=== PATIENT | male | born 2000 | race Caucasian/White ===

== ENCOUNTER 2019-09-27 17:14 | Inpatient (IN) ==
[2019-09-27] MEDS ORDERED: SODIUM CHLORIDE 0.9% 1000ML 1,000 ML IV ONE ×2 (17:37→19:28)
--- NOTE | 2019-09-27 17:37 | Emergency Department Note ---
History of Present Illness General Chief complaint: Fever Stated complaint: FEVER, TACHYCARDIA Time Seen by Provider: 09/27/19 17:18 Source: patient Mode of arrival: EMS Limitations: no limitations History of Present Illness Provider complaint: Fever Onset (ago): hour(s) Location: back Severity: moderate Pain Consistency: + constant Associated symptoms: + fever/chills Treatments prior to arrival: none This is a 19-year-old male who was sent in from [facility] rehab facility after developing a fever today. Patient is only been on [facility] 2 days as he was transferred there following a back surgery at an outside facility. Patient states he originally injured his back after falling down a flight of steps while intoxicated. Patient states since surgery he has had paresthesias in his genital region, difficulty having bowel movements as well as difficulty urinating. He states that he was told this was due to the back surgery and local edema and that this was to be anticipated and should slowly improve with time. Patient states that the facility they have been giving him suppositories and enemas to help with bowel movements, and have been performing catheterizations to void his urine. Patient states he felt well up until earlier today when he felt a sense of chills to the point where he felt as though he was shaking. He states at that time they measured his temperature and told him he had a fever. Following this they proceeded with an enema that is been previously ordered, and following the enema sent into the emergency room. Patient was not given any Tylenol or ibuprofen prior to arrival. Patient states his back is still sore but this does not feel any worse than usual. Patient denies any other complaints of pain, cough, sore throat, trouble breathing. Patient states at the prior hospital he was tested for coronavirus and was told it was negative. Pt seen during a time of high acuity and national emergency pandemic while wearing PPE. Home Medications Home Medications Medication Instructions Recorded Confirmed Type No Known Home Medications 09/27/19 09/27/19 History Allergies Allergy/AdvReac Type Severity Reaction Status Date / Time No Known Allergies Allergy Verified 09/27/19 18:29 Past Med/Surg History Social History Preferred Language: Citizen Of The [place] Communication Ability: Effective Employment Training Specialist Required: No Beliefs That Will Affect Care: None Current Living Situation: Rehab Current Living Situation Comment: From Rehab Other Information That Helps Us Care for You: No Feels Safe at Home: Yes Safety Concerns: Feels Safe At This Time Smoking Status: Current every day smoker Tobacco Type: e-cigarettes ; Hx Alcohol Use: Yes Alcohol type: beer Hx Substance Use: No Review of Systems See HPI for pertinent positives & negatives. and A total of 10 systems reviewed and were otherwise negative Physical Exam Vital Signs Vital Signs - 24 hr 09/27/19 17:25 09/27/19 17:30 09/27/19 17:45 Temperature 39.4 C H Temperature Source Oral Pulse Rate 122 H 122 H 117 H Pulse Rate [Right Finger] Pulse Rate from SpO2 Sensor 123 H 120 H Pulse Rhythm Regular Pulse Strength Normal Respiratory Rate 14 21 15 Respiratory Effort / Characteristics Non-Labored Spontaneous Respiratory Depth Normal Respiratory Pattern Regular Blood Pressure 97/79 L 124/70 Blood Pressure [Right Arm] Blood Pressure Mean 85 79 Blood Pressure Mean [Right Arm] Pulse Oximetry 97 95 98 Oxygen Delivery Method Room Air Room Air Room Air Sepsis Recent Fever Within 48 Hours Yes Sepsis New/Unexplained Change in Mental Status No Sepsis Action Taken by Nursing Physician Notified 09/27/19 18:00 09/27/19 18:15 09/27/19 18:30 Temperature Temperature Source Pulse Rate 114 H 111 H 102 H Pulse Rate [Right Finger] Pulse Rate from SpO2 Sensor 112 H 113 H 104 H Pulse Rhythm Pulse Strength Respiratory Rate 18 20 12 Respiratory Effort / Characteristics Respiratory Depth Respiratory Pattern Blood Pressure 103/55 L Blood Pressure [Right Arm] Blood Pressure Mean 70 Blood Pressure Mean [Right Arm] Pulse Oximetry 97 96 97 Oxygen Delivery Method Room Air Sepsis Recent Fever Within 48 Hours Sepsis New/Unexplained Change in Mental Status Sepsis Action Taken by Nursing 09/27/19 18:45 09/27/19 19:23 09/27/19 19:24 Temperature 37.4 C Temperature Source Oral Pulse Rate 108 H Pulse Rate [Right Finger] 107 H Pulse Rate from SpO2 Sensor 112 H Pulse Rhythm Pulse Strength Respiratory Rate 24 12 Respiratory Effort / Characteristics Respiratory Depth Respiratory Pattern Blood Pressure Blood Pressure [Right Arm] 118/64 Blood Pressure Mean Blood Pressure Mean [Right Arm] 82 Pulse Oximetry 96 99 Oxygen Delivery Method Sepsis Recent Fever Within 48 Hours Sepsis New/Unexplained Change in Mental Status Sepsis Action Taken by Nursing GENERAL: alert, well appearing, well nourished, no distress, non-toxic EYE EXAM: normal conjunctiva, PERRL and EOM's grossly intact OROPHARYNX: no exudate, no erythema, lips, buccal mucosa, and tongue normal and mucous membranes are moist NECK: supple, no nuchal rigidity, no adenopathy, non-tender LUNGS: Clear to auscultation. Normal chest wall mechanics, no w/r/r HEART: no murmurs, S1 normal and S2 normal ABDOMEN: abdomen soft, non-tender, normo-active bowel sounds, no masses, no rebound or guarding. BACK: Back is symmetrical on inspection and there is no deformity, no midline tenderness, no CVA tenderness, dressing intact over multiple vertical incisions to the lumbar spine which appear to be healing well, no surrounding erythema, no dehiscence, no discharge or bleeding SKIN: no rashes and no bruising UPPER EXTREMITIES: upper extremities are grossly normal. FROM, nml pulses b/l. LOWER EXTREMITIES: No pitting edema. FROM, nml pulses b/l. NEURO EXAM: Normal sensorium, cranial nerves II-XII grossly intact, normal speech, no gross weakness of arms, no gross weakness of legs. Gross sensation intact. Course Course 1904: Records obtain from hospitalization from [facility]. Per the discharge summary patient was admitted due to a closed stable burst fracture of the first lumbar vertebrae. Awaiting additional labs from hospitalization. 2001: Pt updated on results. No prior hx of hepatitis or abnormal liver numbers to his knowledge. 2127: Case discussed with Dr. Posey for additional evaluation. Administered Medications Magnesium Hydroxide (Milk Of Magnesia) 30 ml PO DAILY BABATUNDE Stop: 10/28/19 11:14 Last Admin: 09/30/19 10:59 Dose: 30 ml Documented by: [id number] Admin: 09/29/19 09:05 Dose: 30 ml Documented by: [id number] Admin: 09/28/19 11:22 Dose: 30 ml Documented by: [id number] Oxycodone HCl (Roxicodone Immediate Rel) 5 - 10 mg PO Q4H PRN PRN Reason: Pain Stop: 10/11/19 23:18 Last Admin: 09/30/19 16:59 Dose: 10 mg Documented by: [id number] Admin: 09/30/19 10:59 Dose: 10 mg Documented by: [id number] Admin: 09/29/19 23:52 Dose: 10 mg Documented by: [id number] Admin: 09/29/19 12:47 Dose: 10 mg Documented by: [id number] Admin: 09/29/19 00:06 Dose: 10 mg Documented by: [id number] Admin: 09/28/19 19:07 Dose: 10 mg Documented by: [id number] Admin: 09/28/19 14:46 Dose: 10 mg Documented by: [id number] Admin: 09/28/19 08:49 Dose: 10 mg Documented by: [id number] Admin: 09/28/19 00:24 Dose: 10 mg Documented by: [id number] Polyethylene Glycol (Miralax Powder Packet) 17 gm PO DAILY PRN PRN Reason: Constipation Stop: 10/27/19 23:08 Last Admin: 09/29/19 20:00 Dose: 17 gm Documented by: [id number] Sennosides (Senokot) 17.2 mg PO QAM BABATUNDE Stop: 10/28/19 11:14 Last Admin: 09/30/19 10:59 Dose: 17.2 mg Documented by: [id number] Admin: 09/29/19 09:05 Dose: 17.2 mg Documented by: [id number] Admin: 09/28/19 11:21 Dose: 17.2 mg Documented by: [id number] Trimethoprim/Sulfamethoxazole (Septra Ds 800/160mg Tab) 1 tab PO Q12 BABATUNDE Stop: 10/10/19 20:59 Last Admin: 09/30/19 20:59 Dose: 1 tab Documented by: [id number] Discontinued Medications Sodium Chloride (Nss 1000ml) 1,000 mls @ 999 mls/hr IV .Q1H1M ONE Stop: 09/27/19 18:37 Last Infusion: 09/27/19 18:47 Dose: 0 mls/hr Documented by: [id number] Admin: 09/27/19 17:46 Dose: 999 mls/hr Documented by: [id number] Acetaminophen (Ofirmev) 1,000 mg in 100 mls @ 400 mls/hr IV NOW STA Stop: 09/27/19 18:22 Last Infusion: 09/27/19 18:37 Dose: 0 mls/hr Documented by: [id number] Admin: 09/27/19 18:22 Dose: 400 mls/hr Documented by: [id number] Vancomycin HCl 1,250 mg/ (Sodium Chloride) 525 mls @ 200 mls/hr IV NOW ONE Stop: 05/17/20 21:07 Last Infusion: 09/27/19 21:42 Dose: 0 mls/hr Documented by: [id number] Admin: 09/27/19 18:51 Dose: 200 mls/hr Documented by: [id number] Cefepime HCl (Maxipime) 2,000 mg in 20 mls @ 5 mls/min IV NOW STA Stop: 09/27/19 18:33 Last Admin: 09/27/19 18:51 Dose: 5 mls/min Documented by: [id number] Sodium Chloride (Nss 1000ml) 1,000 mls @ 999 mls/hr IV .Q1H1M ONE Stop: 09/27/19 20:28 Last Infusion: 09/27/19 20:47 Dose: 0 mls/hr Documented by: [id number] Admin: 09/27/19 19:46 Dose: 999 mls/hr Documented by: [id number] Ceftriaxone Sodium 1,000 mg/ (Dextrose) 50 mls @ 100 mls/hr IV Q24H BABATUNDE; Protocol Stop: 10/03/19 00:00 Last Infusion: 09/30/19 01:10 Dose: 0 mls/hr Documented by: [id number] Admin: 09/30/19 00:21 Dose: 100 mls/hr Documented by: [id number] Infusion: 09/29/19 00:37 Dose: 0 mls/hr Documented by: [id number] Admin: 09/29/19 00:07 Dose: 100 mls/hr Documented by: [id number] Infusion: 09/28/19 00:46 Dose: 0 mls/hr Documented by: [id number] Admin: 09/28/19 00:16 Dose: 100 mls/hr Documented by: [id number] Polyethylene Glycol/Electrolytes (Golytely) 1 dose PO Q1H BABATUNDE Stop: 09/30/19 23:59 Last Admin: 09/30/19 18:38 Dose: Not Given Documented by: [id number] Admin: 09/30/19 18:37 Dose: Not Given Documented by: [id number] Admin: 09/30/19 18:37 Dose: Not Given Documented by: [id number] Admin: 09/30/19 17:26 Dose: 1 dose Documented by: [id number] Admin: 09/30/19 16:29 Dose: 1 dose Documented by: [id number] Admin: 09/30/19 14:06 Dose: 1 dose Documented by: [id number] Critical Care Time Critical Care Time: Yes Total Critical Care Time: 42 Critical care of 42 min performed to assess and manage high likelihood of life- threatening sepsis, involving labs/imaging performed with assessment to evaluate sepsis diagnosis with frequent reassessment. This time includes bedside time, treatment discussions with patient/family/consultants, documentation time and excludes procedure time. Medical Decision Making Differential Diagnosis Differential diagnosis: Etiologies such as viral syndrome, otitis, pharyngitis, pneumonia, influenza, meningitis, urinary tract infection, sepsis, bacteremia, as well as others were entertained. Medical Records Attestation: I reviewed the patient's medical records. Home Medications Current Medication List: was personally reviewed by me Laboratory Data Attestation: I reviewed the patient's lab results. Result diagrams: 09/28/19 06:57 09/28/19 06:57 Lab Results 09/27/19 09/27/19 09/27/19 Range/Units 17:25 17:25 17:25 WBC 8.02 (4.8-10.8) K/uL RBC 4.21 L (4.7-6.1) M/uL Hgb 12.5 L (14.0-18.0) g/dL Hct 37.4 L (42-52) % MCV 88.8 (80-100) fL MCH 29.7 (25-34) pg MCHC 33.4 (32-36) g/dL RDW Std Deviation 43.6 (36.4-46.3) fL RDW Coeff of Jenni 13.4 (11.5-14.5) % Plt Count 301 (130-400) K/uL MPV 8.9 (7.4-10.4) fL Immature Gran % (Auto) 0.4 % Neut % (Auto) 95.3 % Lymph % (Auto) 2.9 % [place] % (Auto) 0.9 % Eos % (Auto) 0.4 % Baso % (Auto) 0.1 % Immature Gran # (Auto) 0.03 H (0.00-0.02) K/uL Neut # (Auto) 7.65 H (1.4-6.5) K/uL Lymph # (Auto) 0.23 L (1.2-3.4) K/uL [place] # (Auto) 0.07 L (0.11-0.59) K/uL Eos # (Auto) 0.03 (0-0.5) K/uL Baso # (Auto) 0.01 (0-0.2) K/uL PT 11.2 (9.0-12.0) Seconds INR 1.1 (0.9-1.1) APTT 26.1 (21.0-31.0) Seconds PTT Ratio 0.9 Sodium 138 (136-145) mmol/L Potassium 3.5 (3.5-5.1) mmol/L Chloride 103 (98-107) mmol/L Carbon Dioxide 29 (21-32) mmol/L Anion Gap 6.0 (3-11) BUN 19 H (7-18) mg/dl Creatinine 0.96 (0.6-1.4) mg/dl Est Cr Clr Drug Dosing 97.9 ml/min Est GFR ( Amer) 131.4 Est GFR (Non-Af Amer) 113.3 BUN/Creatinine Ratio 19.8 (10-20) Glucose 124 H (70-99) mg/dl Lactate (0.4-2.0) mmol/L Calcium 8.1 L (8.5-10.1) mg/dl Magnesium 1.9 (1.8-2.4) mg/dl Total Bilirubin 0.4 (0.2-1) mg/dl AST 238 H (15-37) U/L ALT 172 H (12-78) U/L Alkaline Phosphatase 171 H (45-117) U/L Troponin I < 0.015 (0-0.045) ng/ml Total Protein 7.1 (6.4-8.2) gm/dl Albumin 3.3 L (3.4-5.0) gm/dl Globulin 3.8 (2.5-4.0) gm/dl Albumin/Globulin Ratio 0.9 (0.9-2) Procalcitonin (0-0.5) ng/ml Urine Color Urine Appearance (Clear) Urine pH (4.5-7.5) Ur Specific [place] (1.000-1.030) Urine Protein (Negative) Urine Glucose (UA) (Negative) Urine Ketones (Negative) Urine Blood (Negative) Urine Nitrite (Negative) Urine Bilirubin (Negative) Urine Urobilinogen (Negative) Ur Leukocyte Esterase (Negative) Urine WBC (Auto) (0-5) /hpf Urine RBC (Auto) (0-4) /hpf U Hyaline Cast (Auto) (0-5) /lpf U Epithel Cells (Auto) (0-5) /lpf Urine Bacteria (Auto) (Negative) Nasal Screen MRSA (PCR) (Negative) Acetaminophen (10-30) ug/ml Hepatitis A IgM Ab (NON-REACTIVE) Hep Bs Antigen (Neg) Hep B Core IgM Ab (NON-REACTIVE) Hepatitis C Antibody (Neg) 09/27/19 09/27/19 09/27/19 Range/Units 17:25 17:25 17:25 WBC (4.8-10.8) K/uL RBC (4.7-6.1) M/uL Hgb (14.0-18.0) g/dL Hct (42-52) % MCV (80-100) fL MCH (25-34) pg MCHC (32-36) g/dL RDW Std Deviation (36.4-46.3) fL RDW Coeff of Jenni (11.5-14.5) % Plt Count (130-400) K/uL MPV (7.4-10.4) fL Immature Gran % (Auto) % Neut % (Auto) % Lymph % (Auto) % [place] % (Auto) % Eos % (Auto) % Baso % (Auto) % Immature Gran # (Auto) (0.00-0.02) K/uL Neut # (Auto) (1.4-6.5) K/uL Lymph # (Auto) (1.2-3.4) K/uL [place] # (Auto) (0.11-0.59) K/uL Eos # (Auto) (0-0.5) K/uL Baso # (Auto) (0-0.2) K/uL PT (9.0-12.0) Seconds INR (0.9-1.1) APTT (21.0-31.0) Seconds PTT Ratio Sodium (136-145) mmol/L Potassium (3.5-5.1) mmol/L Chloride (98-107) mmol/L Carbon Dioxide (21-32) mmol/L Anion Gap (3-11) BUN (7-18) mg/dl Creatinine (0.6-1.4) mg/dl Est Cr Clr Drug Dosing ml/min Est GFR ( Amer) Est GFR (Non-Af Amer) BUN/Creatinine Ratio (10-20) Glucose (70-99) mg/dl Lactate 1.2 (0.4-2.0) mmol/L Calcium (8.5-10.1) mg/dl Magnesium (1.8-2.4) mg/dl Total Bilirubin (0.2-1) mg/dl AST (15-37) U/L ALT (12-78) U/L Alkaline Phosphatase (45-117) U/L Troponin I (0-0.045) ng/ml Total Protein (6.4-8.2) gm/dl Albumin (3.4-5.0) gm/dl Globulin (2.5-4.0) gm/dl Albumin/Globulin Ratio (0.9-2) Procalcitonin 14.77 H (0-0.5) ng/ml Urine Color Urine Appearance (Clear) Urine pH (4.5-7.5) Ur Specific [place] (1.000-1.030) Urine Protein (Negative) Urine Glucose (UA) (Negative) Urine Ketones (Negative) Urine Blood (Negative) Urine Nitrite (Negative) Urine Bilirubin (Negative) Urine Urobilinogen (Negative) Ur Leukocyte Esterase (Negative) Urine WBC (Auto) (0-5) /hpf Urine RBC (Auto) (0-4) /hpf U Hyaline Cast (Auto) (0-5) /lpf U Epithel Cells (Auto) (0-5) /lpf Urine Bacteria (Auto) (Negative) Nasal Screen MRSA (PCR) (Negative) Acetaminophen < 2 L (10-30) ug/ml Hepatitis A IgM Ab (NON-REACTIVE) Hep Bs Antigen (Neg) Hep B Core IgM Ab (NON-REACTIVE) Hepatitis C Antibody (Neg) 09/27/19 09/28/19 09/28/19 Range/Units 19:45 00:20 06:57 WBC 8.91 (4.8-10.8) K/uL RBC 3.90 L (4.7-6.1) M/uL Hgb 11.8 L (14.0-18.0) g/dL Hct 35.3 L (42-52) % MCV 90.5 (80-100) fL MCH 30.3 (25-34) pg MCHC 33.4 (32-36) g/dL RDW Std Deviation 45.3 (36.4-46.3) fL RDW Coeff of Jenni 13.7 (11.5-14.5) % Plt Count 303 (130-400) K/uL MPV 8.9 (7.4-10.4) fL Immature Gran % (Auto) 0.2 % Neut % (Auto) 73.8 % Lymph % (Auto) 15.7 % [place] % (Auto) 8.2 % Eos % (Auto) 2.0 % Baso % (Auto) 0.1 % Immature Gran # (Auto) 0.02 (0.00-0.02) K/uL Neut # (Auto) 6.57 H (1.4-6.5) K/uL Lymph # (Auto) 1.40 (1.2-3.4) K/uL [place] # (Auto) 0.73 H (0.11-0.59) K/uL Eos # (Auto) 0.18 (0-0.5) K/uL Baso # (Auto) 0.01 (0-0.2) K/uL PT (9.0-12.0) Seconds INR (0.9-1.1) APTT (21.0-31.0) Seconds PTT Ratio Sodium (136-145) mmol/L Potassium (3.5-5.1) mmol/L Chloride (98-107) mmol/L Carbon Dioxide (21-32) mmol/L Anion Gap (3-11) BUN (7-18) mg/dl Creatinine (0.6-1.4) mg/dl Est Cr Clr Drug Dosing ml/min Est GFR ( Amer) Est GFR (Non-Af Amer) BUN/Creatinine Ratio (10-20) Glucose (70-99) mg/dl Lactate (0.4-2.0) mmol/L Calcium (8.5-10.1) mg/dl Magnesium (1.8-2.4) mg/dl Total Bilirubin (0.2-1) mg/dl AST (15-37) U/L ALT (12-78) U/L Alkaline Phosphatase (45-117) U/L Troponin I (0-0.045) ng/ml Total Protein (6.4-8.2) gm/dl Albumin (3.4-5.0) gm/dl Globulin (2.5-4.0) gm/dl Albumin/Globulin Ratio (0.9-2) Procalcitonin (0-0.5) ng/ml Urine Color Yellow Urine Appearance Clear (Clear) Urine pH 8.0 H (4.5-7.5) Ur Specific [place] 1.016 (1.000-1.030) Urine Protein Negative (Negative) Urine Glucose (UA) Negative (Negative) Urine Ketones Negative (Negative) Urine Blood 1+ H (Negative) Urine Nitrite Positive A (Negative) Urine Bilirubin Negative (Negative) Urine Urobilinogen Negative (Negative) Ur Leukocyte Esterase Negative (Negative) Urine WBC (Auto) 1-5 (0-5) /hpf Urine RBC (Auto) 0-4 (0-4) /hpf U Hyaline Cast (Auto) 1-5 (0-5) /lpf U Epithel Cells (Auto) 5-10 H (0-5) /lpf Urine Bacteria (Auto) 1+ H (Negative) Nasal Screen MRSA (PCR) Negative (Negative) Acetaminophen (10-30) ug/ml Hepatitis A IgM Ab (NON-REACTIVE) Hep Bs Antigen (Neg) Hep B Core IgM Ab (NON-REACTIVE) Hepatitis C Antibody (Neg) 09/28/19 09/28/19 09/28/19 Range/Units 06:57 06:57 06:57 WBC (4.8-10.8) K/uL RBC (4.7-6.1) M/uL Hgb (14.0-18.0) g/dL Hct (42-52) % MCV (80-100) fL MCH (25-34) pg MCHC (32-36) g/dL RDW Std Deviation (36.4-46.3) fL RDW Coeff of Jenni (11.5-14.5) % Plt Count (130-400) K/uL MPV (7.4-10.4) fL Immature Gran % (Auto) % Neut % (Auto) % Lymph % (Auto) % [place] % (Auto) % Eos % (Auto) % Baso % (Auto) % Immature Gran # (Auto) (0.00-0.02) K/uL Neut # (Auto) (1.4-6.5) K/uL Lymph # (Auto) (1.2-3.4) K/uL [place] # (Auto) (0.11-0.59) K/uL Eos # (Auto) (0-0.5) K/uL Baso # (Auto) (0-0.2) K/uL PT (9.0-12.0) Seconds INR (0.9-1.1) APTT (21.0-31.0) Seconds PTT Ratio Sodium 140 (136-145) mmol/L Potassium 4.0 (3.5-5.1) mmol/L Chloride 107 (98-107) mmol/L Carbon Dioxide 28 (21-32) mmol/L Anion Gap 5.0 (3-11) BUN 12 (7-18) mg/dl Creatinine 0.78 (0.6-1.4) mg/dl Est Cr Clr Drug Dosing 129.5 ml/min Est GFR ( Amer) > 150.0 Est GFR (Non-Af Amer) 129.9 BUN/Creatinine Ratio 15.5 (10-20) Glucose 91 (70-99) mg/dl Lactate (0.4-2.0) mmol/L Calcium 8.5 (8.5-10.1) mg/dl Magnesium (1.8-2.4) mg/dl Total Bilirubin 0.3 (0.2-1) mg/dl AST 80 H (15-37) U/L ALT 122 H (12-78) U/L Alkaline Phosphatase 134 H (45-117) U/L Troponin I (0-0.045) ng/ml Total Protein 6.7 (6.4-8.2) gm/dl Albumin 2.9 L (3.4-5.0) gm/dl Globulin 3.8 (2.5-4.0) gm/dl Albumin/Globulin Ratio 0.8 L (0.9-2) Procalcitonin 49.26 H (0-0.5) ng/ml Urine Color Urine Appearance (Clear) Urine pH (4.5-7.5) Ur Specific [place] (1.000-1.030) Urine Protein (Negative) Urine Glucose (UA) (Negative) Urine Ketones (Negative) Urine Blood (Negative) Urine Nitrite (Negative) Urine Bilirubin (Negative) Urine Urobilinogen (Negative) Ur Leukocyte Esterase (Negative) Urine WBC (Auto) (0-5) /hpf Urine RBC (Auto) (0-4) /hpf U Hyaline Cast (Auto) (0-5) /lpf U Epithel Cells (Auto) (0-5) /lpf Urine Bacteria (Auto) (Negative) Nasal Screen MRSA (PCR) (Negative) Acetaminophen (10-30) ug/ml Hepatitis A IgM Ab (NON-REACTIVE) Hep Bs Antigen Neg (Neg) Hep B Core IgM Ab (NON-REACTIVE) Hepatitis C Antibody Neg (Neg) 09/28/19 Range/Units 06:57 WBC (4.8-10.8) K/uL RBC (4.7-6.1) M/uL Hgb (14.0-18.0) g/dL Hct (42-52) % MCV (80-100) fL MCH (25-34) pg MCHC (32-36) g/dL RDW Std Deviation (36.4-46.3) fL RDW Coeff of Jenni (11.5-14.5) % Plt Count (130-400) K/uL MPV (7.4-10.4) fL Immature Gran % (Auto) % Neut % (Auto) % Lymph % (Auto) % [place] % (Auto) % Eos % (Auto) % Baso % (Auto) % Immature Gran # (Auto) (0.00-0.02) K/uL Neut # (Auto) (1.4-6.5) K/uL Lymph # (Auto) (1.2-3.4) K/uL [place] # (Auto) (0.11-0.59) K/uL Eos # (Auto) (0-0.5) K/uL Baso # (Auto) (0-0.2) K/uL PT (9.0-12.0) Seconds INR (0.9-1.1) APTT (21.0-31.0) Seconds PTT Ratio Sodium (136-145) mmol/L Potassium (3.5-5.1) mmol/L Chloride (98-107) mmol/L Carbon Dioxide (21-32) mmol/L Anion Gap (3-11) BUN (7-18) mg/dl Creatinine (0.6-1.4) mg/dl Est Cr Clr Drug Dosing ml/min Est GFR ( Amer) Est GFR (Non-Af Amer) BUN/Creatinine Ratio (10-20) Glucose (70-99) mg/dl Lactate (0.4-2.0) mmol/L Calcium (8.5-10.1) mg/dl Magnesium (1.8-2.4) mg/dl Total Bilirubin (0.2-1) mg/dl AST (15-37) U/L ALT (12-78) U/L Alkaline Phosphatase (45-117) U/L Troponin I (0-0.045) ng/ml Total Protein (6.4-8.2) gm/dl Albumin (3.4-5.0) gm/dl Globulin (2.5-4.0) gm/dl Albumin/Globulin Ratio (0.9-2) Procalcitonin (0-0.5) ng/ml Urine Color Urine Appearance (Clear) Urine pH (4.5-7.5) Ur Specific [place] (1.000-1.030) Urine Protein (Negative) Urine Glucose (UA) (Negative) Urine Ketones (Negative) Urine Blood (Negative) Urine Nitrite (Negative) Urine Bilirubin (Negative) Urine Urobilinogen (Negative) Ur Leukocyte Esterase (Negative) Urine WBC (Auto) (0-5) /hpf Urine RBC (Auto) (0-4) /hpf U Hyaline Cast (Auto) (0-5) /lpf U Epithel Cells (Auto) (0-5) /lpf Urine Bacteria (Auto) (Negative) Nasal Screen MRSA (PCR) (Negative) Acetaminophen (10-30) ug/ml Hepatitis A IgM Ab NON-REACTIVE (NON-REACTIVE) Hep Bs Antigen (Neg) Hep B Core IgM Ab NON-REACTIVE (NON-REACTIVE) Hepatitis C Antibody (Neg) Imaging Data Radiologist's Impression: XR chest 1V portable, XR KUB/Abdomen 1 view HISTORY: 19 years-old Male SEPSIS acute sepsis COMPARISON: None TECHNIQUE: Portable AP view of the chest with KUB radiograph FINDINGS: CHEST: Cardiomediastinal and hilar silhouettes are within normal limits. No pn eumothorax, pleural effusion, airspace consolidation or overt pulmonary edema. Bones of the chest appear grossly intact. KUB: Nonobstructive bowel gas pattern. Mild fecal retention. No pneumatosis or pneumoperitoneum. Subcentimeter sclerotic focus projecting over the right acetabulum is suggestive of a probable bone island. No urolith identified. Renal shadows are obscured by bowel gas. Posterior interbody jerrod and screw fusion hardware T12-L2. No evidence of hardware complication. IMPRESSION: 1. No acute processes of the chest. 2. Nonobstructive bowel gas pattern. 3. Mild fecal retention. ACT 112: Negative or not required by law. The above report was generated using voice recognition software. It may contain grammatical, syntax or spelling errors. Electronically signed by: Liu Rivers M.D. 09/27/2019 6:28 PM US abdomen limited HISTORY: 19 years-old Male abn lft's, fever acute fever with abnormal LFTs COMPARISON: KUB of same day TECHNIQUE: Multiple real-time sonographic images of the abdominal right upper quadrant were obtained assessing grayscale appearance and color flow FINDINGS: Visualized pancreas is unremarkable. The liver is within normal limits without focal mass or intrahepatic biliary ductal dilation. The gallbladder is mildly distended. The wall measures the upper limits of normal at 3 mm. There is a nonshadowing 6 mm echogenic focus along the nondependent gallbladder wall at the fundus. No central flow. No shadowing cholelithiasis or pericholecystic fluid. Sonographic Hodges sign reported as negative. Imaged right kidney is unremarkable without hydronephrosis. IMPRESSION: 1. Mild gallbladder distention without cholelithiasis or sonographic evidence of acute cholecystitis. 2. 6 mm echogenic focus involving the nondependent gallbladder fundus is suggestive of a polyp. Follow-up abdominal ultrasound in 6 months is recommended to further evaluate. 3. No biliary ductal dilation. ACT 112: Negative or not required by law. The above report was generated using voice recognition software. It may contain grammatical, syntax or spelling errors. Electronically signed by: Liu Rivers M.D. 09/27/2019 8:41 PM ECG Data Attestation: I personally reviewed and interpreted this ECG as follows: Indication: + tachycardia Rate (beats per minute): 122 Rhythm: + sinus tachycardia ECG Intervals/blocks: + Normal QRS and + Normal QT ECG [place]: + Normal ECG ST segments: + Normal ST segments Comparison ECG Date: no prior available Blood Pressure Blood Pressure Findings: Normal blood pressure MDM Narrative Pt presenting from rehab facility due to fever. Pt found to be tachycardic on arrival and first BP slightly low. BP did come up with IVF. HR improved with fever control and IVF. Labs and cultures drawn. CXR and KUB ordered. Urine specimen obtained. Pt has had constipation and urinary retention since his back injury and surgery. Surgical site is well appearing and pt denies worsening pain. Given frequent caths I more likely suspect UTI as the source. I do not suspect epidural abscess or hematoma, discitis or hardware infection. I do not suspect PE. Fever improved with tylenol. Pt started on vanc and cefepime. Pt received 30 ml/kg IVF. UA suggestive of infection. No evidence of SBO. Pt made aware of all results. LFt's found to be elevated. APAP level added and normal. Pt denies hx of hepatitis or abn LFT's in the past. US unremarkable. VS stable while in the ER. CAse discussed with hospitalist. An order was placed for continuous cardiac monitoring. The monitor shows a rate of 100 with sinus tachycardia rhythm. Impression & Plan Sepsis, History of back surgery, Urinary retention, UTI (urinary tract infection), Elevated liver enzymes, Constipation Discharge Plan Visit Data *Final* Discharge Date/Time: 09/27/19 22:49 Chief Complaint: Fever Stated Complaint: FEVER, TACHYCARDIA ED Provider: Milady Causey Discharge Problem: Sepsis, History of back surgery, Urinary retention, UTI (urinary tract infection), Elevated liver enzymes, Constipation Patient Disposition: Admitted As Inpatient Condition: Good Discharge Instructions Interventions: ED Discharge Assessment Last Done: 09/27/19 22:49
[2019-09-27 17:45] LABS: Basophils # (auto) 0.01 K/uL (0-0.2); Basophils % (auto) 0.1 %; Eosinophils # (auto) 0.03 K/uL (0-0.5); Eosinophils % (auto) 0.4 %; Hematocrit (blood only) 37.4 % (42-52); Hemoglobin 12.5 g/dL (14.0-18.0); Immature Granulocytes # (auto) 0.03 K/uL (0.00-0.02); Immature Granulocytes % (auto) 0.4 %; Lymphocytes # (auto) 0.23 K/uL (1.2-3.4); Lymphocytes % (auto) 2.9 %; Mean Corpuscular Hemoglobin 29.7 pg (25-34); Mean Corpuscular Hgb Conc 33.4 g/dL (32-36); Mean Corpuscular Volume 88.8 fL (80-100); Mean Platelet Volume 8.9 fL (7.4-10.4); Monocytes # (auto) 0.07 K/uL (0.11-0.59); Monocytes % (auto) 0.9 %; Neutrophils # (auto) 7.65 K/uL (1.4-6.5); Neutrophils % (auto) 95.3 %; Platelet Count 301 K/uL (130-400); RDW Coefficient of Variation 13.4 % (11.5-14.5); RDW Standard Deviation 43.6 fL (36.4-46.3); Red Blood Count 4.21 M/uL (4.7-6.1); White Blood Count 8.02 K/uL (4.8-10.8)
[2019-09-27 17:55] LABS: INR 1.1 (0.9-1.1); Partial Thromboplastin Ratio 0.9; Partial Thromboplastin Time 26.1 Seconds (21.0-31.0); Prothrombin Time 11.2 Seconds (9.0-12.0)
[2019-09-27 17:58] LABS: Alanine Aminotransferase 172 U/L (12-78); Albumin Level 3.3 gm/dl (3.4-5.0); Aspartate Aminotransferase 238 U/L (15-37); BUN Creatinine Ratio 19.8 (10-20); Blood Urea Nitrogen 19 mg/dl (7-18); Calcium 8.1 mg/dl (8.5-10.1); Carbon Dioxide 29 mmol/L (21-32); Chloride 103 mmol/L (98-107); Creatinine Clr Calc Pharmacy 97.9 ml/min; Est GFR (African American) 131.4; Est GFR (Non-African American) 113.3; Glucose 124 mg/dl (70-99); Magnesium 1.9 mg/dl (1.8-2.4); Potassium 3.5 mmol/L (3.5-5.1); Sodium 138 mmol/L (136-145)
[2019-09-27 18:03] LABS: Albumin Globulin Ratio 0.9 (0.9-2); Alkaline Phosphatase 171 U/L (45-117); Bilirubin,Total 0.4 mg/dl (0.2-1); Globulin 3.8 gm/dl (2.5-4.0); Total Protein 7.1 gm/dl (6.4-8.2); Troponin I < 0.015 ng/ml (0-0.045)
[2019-09-27] MEDS ORDERED: ACETAMINOPHEN 1,000 MG/100 ML VIAL IV STA (18:08)
--- NOTE | 2019-09-27 18:29 | XRay Report ---
XR chest 1V portable, XR KUB/Abdomen 1 view HISTORY: 19 years-old Male SEPSIS acute sepsis COMPARISON: None TECHNIQUE: Portable AP view of the chest with KUB radiograph FINDINGS: CHEST: Cardiomediastinal and hilar silhouettes are within normal limits. No pneumothorax, pleural effusion, airspace consolidation or overt pulmonary edema. Bones of the chest appear grossly intact. KUB: Nonobstructive bowel gas pattern. Mild fecal retention. No pneumatosis or pneumoperitoneum. Subcentim eter sclerotic focus projecting over the right acetabulum is suggestive of a probable bone island. No urolith identified. Renal shadows are obscured by bowel gas. Posterior interbody jerrod and screw fusio n hardware T12-L2. No evidence of hardware complication. IMPRESSION: 1. No acute processes of the chest. 2. Nonobstructive bowel gas pattern. 3. Mild fecal retention. ACT 112: Negative or not required by law. The above report was generated using voice recognition software. It may contain grammatical, syntax o r spelling errors. Electronically signed by: Liu Rivers M.D. 09/27/2019 6:28 PM
[2019-09-27] MEDS ORDERED: CEFEPIME 2,000 MG/20 ML VIAL IV STA (18:30)
[2019-09-27] MEDS ORDERED: VANCOMYCIN HCL 1,250 MG in SODIUM CHLORIDE 0.9% 500 ML IV ONE (18:30)
[2019-09-27] MEDS ORDERED: VANCOMYCIN CONSULT ACTIVE PRN (18:30)
[2019-09-27 19:55] LABS: Appearance Urine Clear (Clear); Bacteria Urine Automated 1+ (Negative); Bilirubin Urine Negative (Negative); Blood Urine 1+ (Negative); Color Urine Yellow; Glucose Urine UA Negative (Negative); Ketones Urine Negative (Negative); Leukocyte Esterase Urine Negative (Negative); Nitrite Urine Positive (Negative); Protein Urine Negative (Negative); RBC Urine Automated 0-4 /hpf (0-4); Specific Gravity Urine 1.016 (1.000-1.030); Urobilinogen Urine Negative (Negative)
--- NOTE | 2019-09-27 20:42 | Ultrasound Report ---
US abdomen limited HISTORY: 19 years-old Male abn lft's, fever acute fever with abnormal LFTs COMPARISON: KUB of same day TECHNIQUE: Multiple real-time sonographic images of the abdominal right upper quadrant were obtained assessing grayscale appearance and color flow FINDINGS: Visualized pancreas is unremarkable. The liver is within normal limits without focal mass or intrahep atic biliary ductal dilation. The gallbladder is mildly distended. The wall measures the upper limits of normal at 3 mm. There is a nonshadowing 6 mm echogenic focus along the nondependent gallbladder w all at the fundus. No central flow. No shadowing cholelithiasis or pericholecystic fluid. Sonographic Hodges sign reported as negative. Imaged right kidney is unremarkable without hydronephrosis. IMPRESSION: 1. Mild gallbladder distention without cholelithiasis or sonographic evidence of acute cholecystitis. 2. 6 mm echogenic focus involving the nondependent gallbladder fundus is suggestive of a polyp. Follo w-up abdominal ultrasound in 6 months is recommended to further evaluate. 3. No biliary ductal dilation. ACT 112: Negative or not required by law. The above report was generated using voice recognition software. It may contain grammatical, syntax o r spelling errors. Electronically signed by: Liu Rivers M.D. 09/27/2019 8:41 PM
[2019-09-27] MEDS ORDERED: ACETAMINOPHEN 325 MG TAB PO PRN (23:09)
[2019-09-27] MEDS ORDERED: ALUMINUM/MAGNESIUM SUSP 30 ML UDC PO PRN (23:09)
[2019-09-27] MEDS ORDERED: OXYCODONE HCL 10 MG/0.5 ML UDP PO PRN (23:09)
[2019-09-27] MEDS ORDERED: MAGNESIUM HYDROXIDE SUSP 30 ML UDC PO PRN (23:09)
[2019-09-27] MEDS ORDERED: POLYETHYLENE (MIRALAX) 17 GM PACK PO PRN (23:09)
[2019-09-27] MEDS ORDERED: ONDANSETRON INJ 2 MG/ML 2 ML VIAL IV PRN (23:09)
[2019-09-27] MEDS ORDERED: SOD PHOSPHATE/SOD BIPHOSPHATE ENEMA 132 ML BTL PR PRN (23:09)
[2019-09-27] MEDS ORDERED: OXYCODONE HCL IR 5 MG TAB (IMMEDIATE RELEASE) PO PRN (23:19)
[2019-09-28] MEDS: cefTRIAXone SODIUM 1,000 MG in DEXTROSE 5% 50 ML IV SCH (00:16)
[2019-09-28] MEDS: OXYCODONE HCL IR 5 MG TAB (IMMEDIATE RELEASE) PO PRN ×4 (00:24→19:07)
--- NOTE | 2019-09-28 00:52 | History & Physical Report ---
Date of Service September 28, 2019 Assessment & Plan (1) Urinary retention: Roberto Concepcion is a 19y/o w/ significant recent medical history of T12-L1 burst fracture with impingement on spinal canal s/p spinal fixation, who presented to the ED from [facility] following episode of fevers and ch ills. UTI secondary to urinary retention - following burst fracture has had urinary retention, and decreased sensation over genitals; was being bladder scanned Q4h while at [facility] and frequently requiring straight catheterization for PVRs >400mL - Urinalysis demonstrated blood, nitrites, and bacteria - with recent spinal surgery, concern for potential of seeding within orthopaedic device if infection is systemic - Procal 14.77, repeat in AM - blood cultures drawn x2 - in ED received Cefepime, continue ceftriaxone daily - will place boyd catheter at this time, as patient continues to have urge to urinate with inability to completely empty bladder - Urology consulted for recommendations on urinary retention management Elevated liver enzymes: - records from previous admission to [facility] for spinal surgery indicate that patient did not have elevated transaminases at that time - on admission, AST 238, ALT 172, Alk phos 171 - acute hepatitis panel ordered - continue to monitor hepatic function s/p T12-L1 Fusion: - Fusion on 09/19/2019, patient with no residual lower extremity muscular deficits , continued decreased sensation over genitals and rectum - narcotic regimen from OSH indicates Oxycodone 5mg Q4h (pain scale 4-6), and Oxycodone 10mg (pain scale 7-10) Diet: regular Code status: Full code DVT ppx: ambulation as tolerated (2) UTI (urinary tract infection): (3) Elevated liver enzymes: (4) History of back surgery: Admission and Anticipated Discharge Date Admission Date: September 27, 2019 History of Present Illness Primary Care Provider: NO PCP Roberto Concepcion is a 19y/o with recent significant PMH for T12-L1 burst fracture with spinal canal impingement s/p T12-L1 fusion; who presented to the ED from [facility] following having fever up to 102.7F, with chills and sweats; was admitted to [facility] two days prior following discharge from [facility], where he had the fusion surgery. Since the injury he has had continued numbness and tingling surrounding his genitals and rectum, with continued difficulties with bowel movements and urination. He was having to have suppositories placed daily in order to have bowel movements, last bowel movement was approximately 4 days ago; has difficulty with urination, he has been receiving bladder scans every 4 hours with straight cathing every 4 hours in between the straight caths he attempts to urinate on his own is able to get only small amounts of urine out at a time with intense straining. He notes that he frequently feels like his bladder is full, and this is unchanged after attempting to urinate but relieved when straight cathed. Over the last day when he has been cathed he has noticed that there is some blood also present, but was told that this was not to be worried about. Patient also reports that prior to discharge from [facility] he was tested for COVID-19 and tested negative. In the meantime he has not had nausea, vomiting, cough, shortness of breath, fatigue, changes in sense of taste, loss of sense of smell. No known or suspected exposure to COVID-19. Social history: Vapes approximately 10 hours daily, recreational alcohol use, denies illicit or recreational drugs Allergies Allergy/AdvReac Type Severity Reaction Status Date / Time No Known Allergies Allergy Verified 09/27/19 18:29 Home Medications Home Medications Medication Instructions Recorded Confirmed Type No Known Home Medications 09/27/19 09/27/19 History Past Med/Surg History Social History Preferred Language: Paraguayan Creative Services Coordinator Required: No Beliefs That Will Affect Care: None Current Living Situation: Rehab Current Living Situation Comment: From Rehab Other Information That Helps Us Care for You: No Feels Safe at Home: Yes Safety Concerns: Feels Safe At This Time Smoking Status: Current every day smoker Tobacco Type: e-cigarettes ; Hx Alcohol Use: Yes Alcohol type: beer Hx Substance Use: No Review of Systems Review of Systems: All systems reviewed & are unremarkable except as noted in HPI & below Physical Exam Constitutional: WD/WN, vitals as above Eyes: PERRL, conjunctivae normal, anicteric sclerae ENMT: external ear and nose normal, oropharynx normal Neck: normal visual inspection Respiratory: normal respiratory effort, lungs clear to auscultation Auscultation: no crackles, no rhonchi and no wheezes Cardiovascular: Rate/Rhythm: regular rate and regular rhythm Heart Sounds: normal S1 and normal S2; no gallop, no murmur and no cardiac rub Vessels: no JVD Extremities: no edema Gastrointestinal (Abdomen): Inspection/Auscultation: abdomen normal to inspection and normal bowel sounds; abdomen not distended Percussion/Palpation: + abdomen tender (suprapubic) and abdomen soft; no guarding and no hepatosplenomegaly Musculoskeletal: no cyanosis or clubbing, extremities motor strength 5/5 Skin: no rashes, warm and dry Genitourinary: no CVA tenderness Lymphatic: no cervical or axillary lymphadenopathy Results & Data Results & Data ([facility]) Vital Signs (Past 12 Hours) Vital Signs Temp Pulse Pulse Resp BP BP Pulse Ox 09/27/19 23:24 37.0 C 75 18 112/64 96 09/27/19 22:49 81 18 111/61 100 09/27/19 21:50 88 18 104/58 L 97 09/27/19 19:24 107 H 12 118/64 99 09/27/19 19:23 37.4 C 09/27/19 18:45 108 H 24 96 09/27/19 18:30 102 H 12 103/55 L 97 09/27/19 18:15 111 H 20 96 09/27/19 18:00 114 H 18 97 09/27/19 17:45 117 H 15 98 09/27/19 17:30 122 H 21 124/70 95 09/27/19 17:25 39.4 C H 122 H 14 97/79 L 97 Laboratory Results 09/27/19 09/27/19 09/27/19 Range/Units 19:45 17:25 17:25 WBC (4.8-10.8) K/uL RBC (4.7-6.1) M/uL Hgb (14.0-18.0) g/dL Hct (42-52) % MCV (80-100) fL MCH (25-34) pg MCHC (32-36) g/dL RDW Std Deviation (36.4-46.3) fL RDW Coeff of Jenni (11.5-14.5) % Plt Count (130-400) K/uL MPV (7.4-10.4) fL Immature Gran % (Auto) % Neut % (Auto) % Lymph % (Auto) % Sherman % (Auto) % Eos % (Auto) % Baso % (Auto) % Immature Gran # (Auto) (0.00-0.02) K/uL Neut # (Auto) (1.4-6.5) K/uL Lymph # (Auto) (1.2-3.4) K/uL Sherman # (Auto) (0.11-0.59) K/uL Eos # (Auto) (0-0.5) K/uL Baso # (Auto) (0-0.2) K/uL PT (9.0-12.0) Seconds INR (0.9-1.1) APTT (21.0-31.0) Seconds PTT Ratio Sodium (136-145) mmol/L Potassium (3.5-5.1) mmol/L Chloride (98-107) mmol/L Carbon Dioxide (21-32) mmol/L Anion Gap (3-11) BUN (7-18) mg/dl Creatinine (0.6-1.4) mg/dl Est Cr Clr Drug Dosing ml/min Est GFR ( Amer) Est GFR (Non-Af Amer) BUN/Creatinine Ratio (10-20) Glucose (70-99) mg/dl Lactate (0.4-2.0) mmol/L Calcium (8.5-10.1) mg/dl Magnesium (1.8-2.4) mg/dl Total Bilirubin (0.2-1) mg/dl AST (15-37) U/L ALT (12-78) U/L Alkaline Phosphatase (45-117) U/L Troponin I (0-0.045) ng/ml Total Protein (6.4-8.2) gm/dl Albumin (3.4-5.0) gm/dl Globulin (2.5-4.0) gm/dl Albumin/Globulin Ratio (0.9-2) Procalcitonin 14.77 H (0-0.5) ng/ml Urine Color Yellow Urine Appearance Clear (Clear) Urine pH 8.0 H (4.5-7.5) Ur Specific [place] 1.016 (1.000-1.030) Urine Protein Negative (Negative) Urine Glucose (UA) Negative (Negative) Urine Ketones Negative (Negative) Urine Blood 1+ H (Negative) Urine Nitrite Positive A (Negative) Urine Bilirubin Negative (Negative) Urine Urobilinogen Negative (Negative) Ur Leukocyte Esterase Negative (Negative) Urine WBC (Auto) 1-5 (0-5) /hpf Urine RBC (Auto) 0-4 (0-4) /hpf U Hyaline Cast (Auto) 1-5 (0-5) /lpf U Epithel Cells (Auto) 5-10 H (0-5) /lpf Urine Bacteria (Auto) 1+ H (Negative) Acetaminophen < 2 L (10-30) ug/ml 09/27/19 09/27/19 09/27/19 Range/Units 17:25 17:25 17:25 WBC (4.8-10.8) K/uL RBC (4.7-6.1) M/uL Hgb (14.0-18.0) g/dL Hct (42-52) % MCV (80-100) fL MCH (25-34) pg MCHC (32-36) g/dL RDW Std Deviation (36.4-46.3) fL RDW Coeff of Jenni (11.5-14.5) % Plt Count (130-400) K/uL MPV (7.4-10.4) fL Immature Gran % (Auto) % Neut % (Auto) % Lymph % (Auto) % Sherman % (Auto) % Eos % (Auto) % Baso % (Auto) % Immature Gran # (Auto) (0.00-0.02) K/uL Neut # (Auto) (1.4-6.5) K/uL Lymph # (Auto) (1.2-3.4) K/uL Sherman # (Auto) (0.11-0.59) K/uL Eos # (Auto) (0-0.5) K/uL Baso # (Auto) (0-0.2) K/uL PT 11.2 (9.0-12.0) Seconds INR 1.1 (0.9-1.1) APTT 26.1 (21.0-31.0) Seconds PTT Ratio 0.9 Sodium 138 (136-145) mmol/L Potassium 3.5 (3.5-5.1) mmol/L Chloride 103 (98-107) mmol/L Carbon Dioxide 29 (21-32) mmol/L Anion Gap 6.0 (3-11) BUN 19 H (7-18) mg/dl Creatinine 0.96 (0.6-1.4) mg/dl Est Cr Clr Drug Dosing 97.9 ml/min Est GFR ( Amer) 131.4 Est GFR (Non-Af Amer) 113.3 BUN/Creatinine Ratio 19.8 (10-20) Glucose 124 H (70-99) mg/dl Lactate 1.2 (0.4-2.0) mmol/L Calcium 8.1 L (8.5-10.1) mg/dl Magnesium 1.9 (1.8-2.4) mg/dl Total Bilirubin 0.4 (0.2-1) mg/dl AST 238 H (15-37) U/L ALT 172 H (12-78) U/L Alkaline Phosphatase 171 H (45-117) U/L Troponin I < 0.015 (0-0.045) ng/ml Total Protein 7.1 (6.4-8.2) gm/dl Albumin 3.3 L (3.4-5.0) gm/dl Globulin 3.8 (2.5-4.0) gm/dl Albumin/Globulin Ratio 0.9 (0.9-2) Procalcitonin (0-0.5) ng/ml Urine Color Urine Appearance (Clear) Urine pH (4.5-7.5) Ur Specific [place] (1.000-1.030) Urine Protein (Negative) Urine Glucose (UA) (Negative) Urine Ketones (Negative) Urine Blood (Negative) Urine Nitrite (Negative) Urine Bilirubin (Negative) Urine Urobilinogen (Negative) Ur Leukocyte Esterase (Negative) Urine WBC (Auto) (0-5) /hpf Urine RBC (Auto) (0-4) /hpf U Hyaline Cast (Auto) (0-5) /lpf U Epithel Cells (Auto) (0-5) /lpf Urine Bacteria (Auto) (Negative) Acetaminophen (10-30) ug/ml 05//20 Range/Units 17:25 WBC 8.02 (4.8-10.8) K/uL RBC 4.21 L (4.7-6.1) M/uL Hgb 12.5 L (14.0-18.0) g/dL Hct 37.4 L (42-52) % MCV 88.8 (80-100) fL MCH 29.7 (25-34) pg MCHC 33.4 (32-36) g/dL RDW Std Deviation 43.6 (36.4-46.3) fL RDW Coeff of Jenni 13.4 (11.5-14.5) % Plt Count 301 (130-400) K/uL MPV 8.9 (7.4-10.4) fL Immature Gran % (Auto) 0.4 % Neut % (Auto) 95.3 % Lymph % (Auto) 2.9 % Sherman % (Auto) 0.9 % Eos % (Auto) 0.4 % Baso % (Auto) 0.1 % Immature Gran # (Auto) 0.03 H (0.00-0.02) K/uL Neut # (Auto) 7.65 H (1.4-6.5) K/uL Lymph # (Auto) 0.23 L (1.2-3.4) K/uL Sherman # (Auto) 0.07 L (0.11-0.59) K/uL Eos # (Auto) 0.03 (0-0.5) K/uL Baso # (Auto) 0.01 (0-0.2) K/uL PT (9.0-12.0) Seconds INR (0.9-1.1) APTT (21.0-31.0) Seconds PTT Ratio Sodium (136-145) mmol/L Potassium (3.5-5.1) mmol/L Chloride (98-107) mmol/L Carbon Dioxide (21-32) mmol/L Anion Gap (3-11) BUN (7-18) mg/dl Creatinine (0.6-1.4) mg/dl Est Cr Clr Drug Dosing ml/min Est GFR ( Amer) Est GFR (Non-Af Amer) BUN/Creatinine Ratio (10-20) Glucose (70-99) mg/dl Lactate (0.4-2.0) mmol/L Calcium (8.5-10.1) mg/dl Magnesium (1.8-2.4) mg/dl Total Bilirubin (0.2-1) mg/dl AST (15-37) U/L ALT (12-78) U/L Alkaline Phosphatase (45-117) U/L Troponin I (0-0.045) ng/ml Total Protein (6.4-8.2) gm/dl Albumin (3.4-5.0) gm/dl Globulin (2.5-4.0) gm/dl Albumin/Globulin Ratio (0.9-2) Procalcitonin (0-0.5) ng/ml Urine Color Urine Appearance (Clear) Urine pH (4.5-7.5) Ur Specific [place] (1.000-1.030) Urine Protein (Negative) Urine Glucose (UA) (Negative) Urine Ketones (Negative) Urine Blood (Negative) Urine Nitrite (Negative) Urine Bilirubin (Negative) Urine Urobilinogen (Negative) Ur Leukocyte Esterase (Negative) Urine WBC (Auto) (0-5) /hpf Urine RBC (Auto) (0-4) /hpf U Hyaline Cast (Auto) (0-5) /lpf U Epithel Cells (Auto) (0-5) /lpf Urine Bacteria (Auto) (Negative) Acetaminophen (10-30) ug/ml Medications Administered Current Inpatient Medications Acetaminophen (Tylenol) 650 mg PO Q4H PRN PRN Reason: pain/fever Stop: 10/27/19 23:08 Al Hydrox/Mg Hydrox/Simethicone (Maalox) 30 ml PO Q6H PRN PRN Reason: Dyspepsia Stop: 10/27/19 23:08 Ceftriaxone Sodium 1,000 mg/ (Dextrose) 50 mls @ 100 mls/hr IV Q24H [facility]; Protocol Stop: 10/03/19 00:00 Last Admin: 09/28/19 00:16 Dose: 100 mls/hr Documented by: Magnesium Hydroxide (Milk Of Magnesia) 30 ml PO Q6H PRN PRN Reason: Constipation Stop: 10/27/19 23:08 Ondansetron HCl (Zofran) 4 mg IV Q6H PRN PRN Reason: Nausea Stop: 10/27/19 23:08 Oxycodone HCl (Roxicodone Immediate Rel) 5 - 10 mg PO Q4H PRN PRN Reason: Pain Stop: 10/11/19 23:18 Last Admin: 09/28/19 00:24 Dose: 10 mg Documented by: Polyethylene Glycol (Miralax Powder Packet) 17 gm PO DAILY PRN PRN Reason: Constipation Stop: 10/27/19 23:08 Sodium Biphosphate/Sodium Phosphate (Fleet Enema) 132 ml FL DAILY PRN PRN Reason: Constipation Stop: 10/27/19 23:08 Supervising Physician Co-Signing Physician Notes Patient seen and examined, chart reviewed, case discussed with Dr. Zarate and I agree with his assessment and plan as documented above. Briefly, patient is a 19yo male with recent fall resulting in L1 burst fracture with canal retropulsion requiring surgical repair. Some residual urinary and fecal retention and perineal numbness since surgery which is improving. Patient has been at [facility] for rehab, has been getting straight cathed q 4 hours for urinary retention. Presents today with fevers/chills On exam his is curently afebrile, HD stable, NAD Skin - surgical wound well approximated, no bleeding/drainage/dehiscence/erythema HEENT - NC/AT, PERRL, EOMI, MMM Heart - +S1/S2, regular Lungs - CTA ABD - +BS, soft, NT/ND Ext - no edema Neuro - intact Labs and images reviewed Assessment/Plan - suspect UTI from frequent straight cath, urinary retention -Place Boyd -Urology consultation -Ceftriaxone -Remainder of plan as above Resident Activity Tracking Resident Involvement: Resident Care Provided Care Provided: Adult Hospital Medicine
--- NOTE | 2019-09-28 06:58 | Billing Data ---
Date of Service September 27, 2019 Coding Level of Care Code 11096 OBS Care - Level 2
[2019-09-28 07:22] LABS: Basophils # (auto) 0.01 K/uL (0-0.2); Basophils % (auto) 0.1 %; Eosinophils # (auto) 0.18 K/uL (0-0.5); Hematocrit (blood only) 35.3 % (42-52); Hemoglobin 11.8 g/dL (14.0-18.0); Immature Granulocytes # (auto) 0.02 K/uL (0.00-0.02); Immature Granulocytes % (auto) 0.2 %; Lymphocytes % (auto) 15.7 %; Mean Corpuscular Hemoglobin 30.3 pg (25-34); Mean Corpuscular Hgb Conc 33.4 g/dL (32-36); Mean Corpuscular Volume 90.5 fL (80-100); Mean Platelet Volume 8.9 fL (7.4-10.4); Monocytes # (auto) 0.73 K/uL (0.11-0.59); Monocytes % (auto) 8.2 %; Neutrophils # (auto) 6.57 K/uL (1.4-6.5); Neutrophils % (auto) 73.8 %; Platelet Count 303 K/uL (130-400); RDW Coefficient of Variation 13.7 % (11.5-14.5); RDW Standard Deviation 45.3 fL (36.4-46.3); White Blood Count 8.91 K/uL (4.8-10.8)
[2019-09-28 08:09] LABS: Alanine Aminotransferase 122 U/L (12-78); Albumin Globulin Ratio 0.8 (0.9-2); Albumin Level 2.9 gm/dl (3.4-5.0); Alkaline Phosphatase 134 U/L (45-117); Aspartate Aminotransferase 80 U/L (15-37); BUN Creatinine Ratio 15.5 (10-20); Bilirubin,Total 0.3 mg/dl (0.2-1); Blood Urea Nitrogen 12 mg/dl (7-18); Calcium 8.5 mg/dl (8.5-10.1); Carbon Dioxide 28 mmol/L (21-32); Chloride 107 mmol/L (98-107); Creatinine Clr Calc Pharmacy 129.5 ml/min; Est GFR (African American) > 150.0; Est GFR (Non-African American) 129.9; Globulin 3.8 gm/dl (2.5-4.0); Glucose 91 mg/dl (70-99); Sodium 140 mmol/L (136-145); Total Protein 6.7 gm/dl (6.4-8.2)
[2019-09-28 08:17] LABS: Hepatitis B Surface Antigen Neg (Neg)
--- NOTE | 2019-09-28 08:32 | Urology Consultation ---
Date of Consultation September 28, 2019 Assessment & Plan (1) Urinary retention: Likely multifactorial largely revolve around back surgery and recovery and deconditioning secondary from this procedure. Patient's bowels have not returned to normal, patient is poorly mobile due to acute illness as well as recovery. Patient likely dealing with multiple effects that would lead to trouble with emptying. Patient is tolerating catheter at this time. Patient's records were reviewed pertinent information as listed above. Patient's complicated medical and surgical history was reviewed and summarized above. At this point agree with supportive care. Would maintain catheter for a short period of time until patient has more normal return of bowel function and is better conditioned and more mobile. Patient may be able to transition to intermittent catheters. According to records this appears to be what the patient had been doing prior to admission. Patient is seen in [place] after his spinal surgery. Will likely need to continue with follow-up with them. We will continue to monitor and will be able to set up follow-up as needed if patient has not been established with a urologist in the [place] area. Agree with continued monitoring as well as supportive care. Patient is undergoi ng work-up for other issues. Would recommend bowel regimen, physical therapy to increase mobility, and hydration. Would also recommend avoiding any medications that may worsen urinary issues. May need to try to decrease any narcotic use for pain control as this can contribute. If needed, would have follow-up in approximately 4 to 6 weeks. (2) History of back surgery: (3) Constipation: History of Present Illness Attending Physician: Karyn Ma DO History of Present Illness Consult for urinary issues with incomplete emptying and possible retention. Patient had a recent back surgery and since then has been dealing with constipation related issues as well as trouble voiding. Patient apparently was doing intermittent catheter and per records. On assessment patient was recently sleeping and when awaken only answer minimal questions. Denied major complaints or issues. Review of records did find patient has mild to moderate discomfort in pelvis and groin going to back and side in waves. Is dealing with acute illness likely secondary to constipation as well as abdominal pain and other issues. Is being further worked up for issues such as elevated liver enzymes. Patient is still recovering from surgery, and has been deconditioned from this. Has decreased mobility significantly with acute issues. He was aware that after the surgery he may have some issues with constipation, slow return of normal bowel function, urinary related issues, and other problems likely secondary from surgery on the spine as well as recovery from the surgery itself. Patient has not had complete return to normal bowel function. Has not had urinary issues in the past. Denies bleeding. No severe nausea or vomiting. Currently no fevers. Is tolerating catheter. Discussed with patient multifactorial nature of urinary issues, retention, and incomplete bladder emptying. Discussed concerns and issues. Discussed decreased mobility and trouble voiding. Discussed issues related to deconditioning and weakened state. Discussed possibility that patient had more moderate to severe issues and with the acute illness and deconditioning these issues became more prevalent and obvious. Discussed bowel function and possible issues related to decrease in function and its relation to other pelvic organs and systems. Discussed different medications, will use during hospitalization and their effect on ability to empty. 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 Patient is well nourished and well kept. HEENT: Normocephalic Atraumatic. Inspection normal. Cranial Nerves 2-12 Grossly intact. Nares are clear. Neck is supple. Normal inspection of face. Normal inspection of neck. Neurologic: No deficits on inspection. Baseline for motor function and sensory. Psychologic: Somnolent Respiratory: Nonlabored. No use of accessory muscles. No tachypnea or dyspnea. Cardiovascular: No tachycardia Skin: [place] and Dry. No rashes or visible lesions. Extremities: Moving without issues. No motor deficits on inspection Lymphatics: No edema Abdomen: Soft Non-distended. No acites. No rebound or guarding. Results & Data Vital Signs (Past 12 Hours) Vital Signs Temp Pulse Pulse Resp BP BP Pulse Ox 09/28/19 07:52 37.1 C 73 18 108/63 99 09/27/19 23:24 37.0 C 75 18 112/64 96 09/27/19 22:49 81 18 111/61 100 09/27/19 21:50 88 18 104/58 L 97 PG Care Time/CCT Total # of Minutes Spent Total Time Spent with Patient: Total time spent is greater than 50% in coordinat ion of care (as documented) at patient's floor/unit and/or counseling patient: Coding Level of Care Code 41396 Inpt Consult Level 5 Diagnoses Urinary retention R33.9 History of back surgery Z98.890 Constipation K59.00
[2019-09-28 08:45] LABS: Hepatitis C IgG 13Yrs+Old_Rflx Neg (Neg)
--- NOTE | 2019-09-28 08:47 | Ultrasound Report ---
US renal/blad retro comp CLINICAL HISTORY: 19 years-old Male presenting with urinary retention. TECHNIQUE: Real-time grayscale and limited color Doppler ultrasound imaging of the kidneys and bladde r was performed. COMPARISON: Ultrasound from 09/27/2019. FINDINGS: Right kidney: Normal echogenicity with preserved corticomedullary differentiation. Normal cortical th ickness. Right kidney measures 10.7 cm. No hydronephrosis. No convincing evidence of calculus or mass . Left kidney: Normal echogenicity with preserved corticomedullary differentiation. Normal cortical thi ckness. Left kidney measures 10.2 cm. No hydronephrosis. No convincing evidence of calculus or mass. Bladder: Decompressed with a Dave catheter limiting evaluation. Bilateral ureteral jets not visualiz ed. Other: None. IMPRESSION: 1. Normal renal ultrasound. No obstruction. 2. Limited evaluation of the urinary bladder due to the presence of a Dave catheter. ACT 112: Negative or not required by law. Electronically signed by: Pino Soni M.D. 09/28/2019 8:45 AM
[2019-09-28] MEDS: SENNA 8.6 MG TAB PO SCH (11:21)
[2019-09-28] MEDS: MAGNESIUM HYDROXIDE SUSP 30 ML UDC PO SCH (11:22)
--- NOTE | 2019-09-28 16:50 | Electrocardiogram Report ---
Test Reason : Blood Pressure : / mmHG Vent. Rate : 122 BPM Atrial Rate : 122 BPM P-R Int : 152 ms QRS Dur : 076 ms QT Int : 298 ms P-R-T Axes : 060 075 041 degrees QTc Int : 424 ms Sinus tachycardia Otherwise normal ECG No previous ECGs available Confirmed by Patricio Sandy ([id number]) on 09/28/2019 4:50:46 PM Referred By: REFERRED SELF Confirmed By:Jarvis Sandy
--- NOTE | 2019-09-28 19:38 | Hospitalist Progress Note ---
Date of Service September 28, 2019 Assessment & Plan (1) Urinary retention: Roberto Concepcion is a 19y/o w/ significant recent medical history of T12-L1 burst fracture with impingement on spinal canal s/p spinal fixation, who presented to the ED from [facility] following episode of fevers and ch ills. UTI secondary to urinary retention - following burst fracture has had urinary retention, and decreased sensation over genitals; was being bladder scanned Q4h while at [facility] and frequently requiring straight catheterization for PVRs >400mL - Urinalysis demonstrated blood, nitrites, and bacteria - with recent spinal surgery, concern for potential of seeding within orthopaedic device if infection is systemic - Procal 14.77, repeat in AM - blood cultures drawn x2 - in ED received Cefepime, continue ceftriaxone daily - will place boyd catheter at this time, as patient continues to have urge to urinate with inability to completely empty bladder - Urology plans to monitor with boyd, bowel regimen, decreased opioid use Elevated liver enzymes: - records from previous admission to [facility] for spinal surgery indicate that patient did not have elevated transaminases at that time - on admission, AST 238, ALT 172, Alk phos 171 - acute hepatitis panel ordered - continue to monitor hepatic function s/p T12-L1 Fusion: - Fusion on 09/19/2019, patient with no residual lower extremity muscular defic its, continued decreased sensation over genitals and rectum - narcotic regimen from OSH indicates Oxycodone 5mg Q4h (pain scale 4-6), and Oxycodone 10mg (pain scale 7-10) Diet: regular Code status: Full code DVT ppx: ambulation as tolerated (2) UTI (urinary tract infection): (3) Elevated liver enzymes: (4) History of back surgery: (5) Constipation: MOM, senna Hopefully this will improve urinary retention Opioid use noted Admission and Anticipated Discharge Date Admission Date: September 27, 2019 Subjective Pt's main concern is his IV site. He states it is hurting him and "bleeding now" and if we don't take it out "I'll take it out myself". States his last bowel movement was around the time of his surgery on 09/17. He is passing gas today though. Pt denies fever, SOB, chest pain, abd pain, n/v. States his back pain "sucks". Review of Systems Review of Systems: Pertinent positives and negatives reviewed in HPI--all others negative Physical Exam Constitutional: WD/WN, vitals as above resting comfortably when I entered the room, interacts minimally and appears annoyed at my questions Eyes: normal visual crawely by confrontation and + anicteric sclerae Neck: normal visual inspection and trachea midline Respiratory: normal respiratory effort, lungs clear to auscultation Cardiovascular: Rate/Rhythm: regular rate and regular rhythm Gastrointestinal (Abdomen): Inspection/Auscultation: abdomen not distended Percussion/Palpation: abdomen soft; abdomen nontender Musculoskeletal: Head/Neck/Chest: normocephalic and head atraumatic negative for edema, peripheral pulses intact Skin: no rashes, warm and dry Neurologic: awake; not confused Speech / Cognition: normal speech Psychiatric: Orientation: oriented x 3 Affect: + irritable affect Results & Data Results & Data ([facility]) Vital Signs (Past 12 Hours) Vital Signs Temp Pulse Resp BP Pulse Ox 09/28/19 15:04 36.9 C 70 16 106/63 100 09/28/19 07:52 37.1 C 73 18 108/63 99 PG Care Time/CCT Total # of Minutes Spent Total Time Spent with Patient: Total time spent is greater than 50% in coordination of care (as documented) at patient's floor/unit and/or counseling patient: Coding Level of Care Code 59056 Subseq Hosp Care Lvl 3 Diagnoses Urinary retention R33.9 UTI (urinary tract infection) N39.0 Elevated liver enzymes R74.8 History of back surgery Z98.890 Constipation K59.00
[2019-09-29] MEDS: OXYCODONE HCL IR 5 MG TAB (IMMEDIATE RELEASE) PO PRN ×3 (00:06→23:52)
[2019-09-29] MEDS: cefTRIAXone SODIUM 1,000 MG in DEXTROSE 5% 50 ML IV SCH (00:07)
[2019-09-29] MEDS: SENNA 8.6 MG TAB PO SCH (09:05)
[2019-09-29] MEDS: MAGNESIUM HYDROXIDE SUSP 30 ML UDC PO SCH (09:05)
[2019-09-29 13:14] LABS: Hepatitis A Antibody IgM NON-REACTIVE (NON-REACTIVE); Hepatitis B Core Antibody IgM NON-REACTIVE (NON-REACTIVE)
--- NOTE | 2019-09-29 17:44 | Hospitalist Progress Note ---
Date of Service September 29, 2019 Assessment & Plan (1) Urinary retention: Roberto Concepcion is a 19y/o w/ significant recent medical history of T12-L1 burst fracture with impingement on spinal canal s/p spinal fixation, who presented to the ED from [facility] following episode of fevers and ch ills. UTI secondary to urinary retention - following burst fracture has had urinary retention, and decreased sensation over genitals; was being bladder scanned Q4h while at [facility] and frequently requiring straight catheterization for PVRs >400mL - Urinalysis demonstrated blood, nitrites, and bacteria - with recent spinal surgery, concern for potential of seeding within orthopaedic device if infection is systemic - Procal 14.77, repeat in AM - blood cultures drawn x2 - in ED received Cefepime, continue ceftriaxone daily - will place boyd catheter at this time, as patient continues to have urge to urinate with inability to completely empty bladder - Urology plans to monitor with boyd, bowel regimen, decreased opioid use Urine cx with 80K coag neg staph Elevated liver enzymes: - records from previous admission to [facility] for spinal surgery indicate that patient did not have elevated transaminases at that time - on admission, AST 238, ALT 172, Alk phos 171 - acute hepatitis panel ordered - continue to monitor hepatic function s/p T12-L1 Fusion: - Fusion on 09/19/2019, patient with no residual lower extremity muscular deficits, continued decreased sensation over genitals and rectum - narcotic regimen from OSH indicates Oxycodone 5mg Q4h (pain scale 4-6), and Oxycodone 10mg (pain scale 7-10) Diet: regular Code status: Full code DVT ppx: ambulation as tolerated (2) UTI (urinary tract infection): (3) Elevated liver enzymes: (4) History of back surgery: (5) Constipation: MOM, senna Hopefully this will improve urinary retention Opioid use noted, may need t/c relistor given opioid use Admission and Anticipated Discharge Date Admission Date: September 28, 2019 Subjective Pt is overall more comfortable. His back pain is less today. IV is not irritating. Still no bowel movement, but he is passing gas still. Pt denies fever, SOB, chest pain, abd pain, n/v. Review of Systems Review of Systems: Pertinent positives and negatives reviewed in HPI--all others negative Physical Exam Constitutional: WD/WN, vitals as above Eyes: normal visual crawley by confrontation and + anicteric sclerae Neck: normal visual inspection and trachea midline Respiratory: normal respiratory effort, lungs clear to auscultation Cardiovascular: Rate/Rhythm: regular rate and regular rhythm Extremities: no edema Gastrointestinal (Abdomen): Inspection/Auscultation: abdomen not distended Percussion/Palpation: abdomen soft; abdomen nontender Musculoskeletal: Head/Neck/Chest: normocephalic and head atraumatic Skin: no rashes, warm and dry Neurologic: awake; not confused Speech / Cognition: normal speech Psychiatric: Orientation: oriented x 3 Affect: + irritable affect Results & Data Results & Data ([facility]) Vital Signs (Past 12 Hours) Vital Signs Temp Pulse Resp BP BP Pulse Ox 09/29/19 15:00 36.8 C 75 18 108/65 95 09/29/19 13:31 37.7 C H 84 20 123/75 96 09/29/19 07:50 36.8 C 63 16 106/68 99 PG Care Time/CCT Total # of Minutes Spent Total Time Spent with Patient: Total time spent is greater than 50% in coordination of care (as documented) at patient's floor/unit and/or counseling patient: Coding Level of Care Code 05666 Subseq Hosp Care Lvl 3 Diagnoses Urinary retention R33.9 UTI (urinary tract infection) N39.0 Elevated liver enzymes R74.8 History of back surgery Z98.890 Constipation K59.00
[2019-09-30] MEDS: cefTRIAXone SODIUM 1,000 MG in DEXTROSE 5% 50 ML IV SCH (00:21)
[2019-09-30] MEDS: MAGNESIUM HYDROXIDE SUSP 30 ML UDC PO SCH (10:59)
[2019-09-30] MEDS: OXYCODONE HCL IR 5 MG TAB (IMMEDIATE RELEASE) PO PRN ×2 (10:59→16:59)
[2019-09-30] MEDS: SENNA 8.6 MG TAB PO SCH (10:59)
[2019-09-30] MEDS: LAVAGE SOLUTION 4000ML PO SCH ×5 (14:06→18:38)
--- NOTE | 2019-09-30 14:43 | Hospitalist Progress Note ---
Date of Service September 30, 2019 Assessment & Plan (1) Urinary retention: Roberto Concepcion is a 19y/o w/ significant recent medical history of T12-L1 burst fracture with impingement on spinal canal s/p spinal fixation, who presented to the ED from [facility] following episode of fevers and ch ills. UTI secondary to urinary retention - following burst fracture has had urinary retention, and decreased sensation over genitals; was being bladder scanned Q4h while at [facility] and frequently requiring straight catheterization for PVRs >400mL - Urinalysis demonstrated blood, nitrites, and bacteria - with recent spinal surgery, concern for potential of seeding within orthopaedic device if infection is systemic - Procal 14.77, repeat in AM - blood cx neg x2 - in ED received Cefepime, continue ceftriaxone daily - will place boyd catheter at this time, as patient continues to have urge to urinate with inability to completely empty bladder - Urology plans to monitor with boyd, bowel regimen, decreased opioid use Urine cx with 80K coag neg staph, sensi pending Elevated liver enzymes: - records from previous admission to [facility] for spinal surgery indicate that patient did not have elevated transaminases at that time - on admission, AST 238, ALT 172, Alk phos 171 - acute hepatitis panel ordered - continue to monitor hepatic function s/p T12-L1 Fusion: - Fusion on 09/19/2019, patient with no residual lower extremity muscular deficits, continued decreased sensation over genitals and rectum - narcotic regimen from OSH indicates Oxycodone 5mg Q4h (pain scale 4-6), and Oxycodone 10mg (pain scale 7-10) Diet: regular Code status: Full code DVT ppx: ambulation as tolerated (2) UTI (urinary tract infection): (3) Elevated liver enzymes: (4) History of back surgery: (5) Constipation: MOM, senna Hopefully this will improve urinary retention Start trial of Golytely in small doses until bowel movement on 09/29 Opioid use noted, may need t/c relistor given opioid use Admission and Anticipated Discharge Date Admission Date: September 28, 2019 Subjective Pt is stable. He states he had 2 very small solid bowel movements and 1 small amount of brown liquid bowel movement yesterday. No bowel movement yet today. He is passing gas still. Pt denies fever, SOB, chest pain, abd pain, n/v. Ongoing back pain related to surgery. Review of Systems Review of Systems: Pertinent positives and negatives reviewed in HPI--all others negative Physical Exam Constitutional: WD/WN, vitals as above Eyes: normal visual crawley by confrontation and + anicteric sclerae Neck: normal visual inspection and trachea midline Respiratory: normal respiratory effort, lungs clear to auscultation Cardiovascular: Rate/Rhythm: regular rate and regular rhythm Extremities: no edema Gastrointestinal (Abdomen): Inspection/Auscultation: abdomen not distended Percussion/Palpation: abdomen soft; abdomen nontender Musculoskeletal: Head/Neck/Chest: normocephalic and head atraumatic Skin: no rashes, warm and dry Neurologic: awake; not confused Speech / Cognition: normal speech Psychiatric: Orientation: oriented x 3 Affect: + irritable affect Results & Data Results & Data ([facility]) Vital Signs (Past 12 Hours) Vital Signs Temp Pulse Resp BP 09/30/19 07:57 36.8 C 63 16 101/60 PG Care Time/CCT Total # of Minutes Spent Total Time Spent with Patient: Total time spent is greater than 50% in coordination of care (as documented) at patient's floor/unit and/or counseling patient: Coding Level of Care Code 49592 Subseq Hosp Care Lvl 2 Diagnoses Urinary retention R33.9 UTI (urinary tract infection) N39.0 Elevated liver enzymes R74.8 History of back surgery Z98.890 Constipation K59.00
[2019-09-30] MEDS ORDERED: Nursing to Pharmacy Communication ONE (17:53)
[2019-09-30] MEDS ORDERED: LAVAGE SOLUTION 4000ML PO PRN (17:56)
[2019-09-30] MEDS: SULFAMETHOXAZOLE/TRIMETHOPRIM DS 800/160MG TAB PO SCH (20:59)
[2019-10-01 00:13] VITALS: O2SAT 98
[2019-10-01 07:55] LABS: Albumin Level 3.4 gm/dl (3.4-5.0); BUN Creatinine Ratio 17.6 (10-20); Calcium 9.6 mg/dl (8.5-10.1); Creatinine Clr Calc Pharmacy 98.1 ml/min; Est GFR (African American) 120.6; Est GFR (Non-African American) 104.1; Potassium 3.9 mmol/L (3.5-5.1)
[2019-10-01 07:58] LABS: Albumin Globulin Ratio 0.8 (0.9-2); Bilirubin,Total 0.3 mg/dl (0.2-1); Globulin 4.2 gm/dl (2.5-4.0); Total Protein 7.6 gm/dl (6.4-8.2)
[2019-10-01] MEDS: SENNA 8.6 MG TAB PO SCH (08:32)
[2019-10-01] MEDS: MAGNESIUM HYDROXIDE SUSP 30 ML UDC PO SCH (08:32)
[2019-10-01] MEDS: SULFAMETHOXAZOLE/TRIMETHOPRIM DS 800/160MG TAB PO SCH ×2 (08:45→21:31)
--- NOTE | 2019-10-01 21:19 | Hospitalist Progress Note ---
Date of Service October 01, 2019 Assessment & Plan (1) Sepsis: 2nd to catheter-associated UTI - resolved. blood cx's negative. no fever in 48 hours. (2) Catheter-associated urinary tract infection: had been getting straight cathing at [facility]. thus, complicated UTI. 2nd coag negative staph. now on bactrim BID. agree w/ 2-week course of abx. (3) Neurogenic bladder: 2nd to spinal injury. hopefully with time his function will return. urology has seen - intermittent I/O cathing recommended upon return to [facility] with outpatient urology f/u. patient prefers to leave boyd in place for now. (4) Elevated liver enzymes: etiology ? acute liver injury from alcohol ~2 weeks ago? shock liver from low BP at time of this admission? medication? other? either way LFTs have normalized. HepA,B,C all wnl. (5) Constipation: 2nd to opiates and probably element of neurogenic bowel. cont bowel regimen. improved. (6) Urinary retention: 2nd to neurogenic bladder s/p boyd insertion (7) History of back surgery: T12-L1 burst fracture s/p fixation procedure - [facility] reconsult PT/OT needs to return to [facility] post-d/c for intensive rehab (8) DVT prophylaxis: lovenox 40mg daily anticipate d/c next 24 hours if Pt/Ot evals are completed Admission and Anticipated Discharge Date Admission Date: September 28, 2019 Subjective patient feeling well. no abdominal pain. tolerating boyd. eating well (although skipped breakfast). minimal back pain. has not worked with PT yet. no fevers or chills. patient admits that on the night of his fall leading to his burst fracture he had been drinking heavily. he does not recall, however, being told his LFTs at [facility] were elevated. had large bowel movement yesterday. Review of Systems Constitutional: no fever, no chills, no fatigue and no anorexia Respiratory: no cough Cardiovascular: no chest pain Gastrointestinal: no abdominal pain, no nausea and no vomiting Physical Exam Constitutional: no acute distress and no altered mental status ENMT: external ear and nose normal, oropharynx normal Respiratory: normal respiratory effort, lungs clear to auscultation Cardiovascular: Rate/Rhythm: regular rate and regular rhythm Heart Sounds: normal S1, normal S2 and + murmur (1/6 diastolic ?? LSB ) Vessels: posterior tibial pulses present and dorsalis pedis pulses present; no JVD Extremities: no edema Gastrointestinal (Abdomen): normal bowel sounds, soft, nontender, no hepatosplenomegaly Skin: incisions midline back clean, dry, intact; no erythema; well-healed Psychiatric: A+Ox3, euthymic affect Genitourinary: boyd in place Results & Data Results & Data ([facility]) Vital Signs (Past 12 Hours) Vital Signs Temp Pulse Resp BP Pulse Ox 10/01/19 16:00 37.1 C 72 18 103/62 98 Laboratory Results Laboratory Results - last 24 hr 10/01/19 06:25 Sodium 138 Potassium 3.9 Chloride 102 Carbon Dioxide 27 Anion Gap 9.0 BUN 18 Creatinine 1.03 Est Cr Clr Drug Dosing 98.1 Est GFR ( Amer) 120.6 Est GFR (Non-Af Amer) 104.1 BUN/Creatinine Ratio 17.6 Glucose 79 Calcium 9.6 Total Bilirubin 0.3 AST 23 ALT 63 Alkaline Phosphatase 132 H Total Protein 7.6 Albumin 3.4 Globulin 4.2 H Albumin/Globulin Ratio 0.8 L blood cx's negative PG Care Time/CCT Total # of Minutes Spent Total Time Spent with Patient: Total time spent is greater than 50% in coordination of care (as documented) at patient's floor/unit and/or counseling patient: Coding Level of Care Code 00919 Subseq Hosp Care Lvl 2 Diagnoses Sepsis A41.9; R65.20 Sepsis acute organ dysfunction status: with acute organ dysfunction Sepsis type: sepsis due to unspecified organism Severe sepsis acute organ dysfunction type: unspecified Severe sepsis shock status: without septic shock Catheter-associated urinary tract infection T83.511D; N39.0 Indwelling urinary catheter type: unspecified Encounter type: subsequent encounter Neurogenic bladder N31.9 Elevated liver enzymes R74.8 Constipation K59.09 Constipation type: other constipation type Urinary retention R33.9 History of back surgery Z98.890 DVT prophylaxis Z29.9 (1) Sepsis Sepsis acute organ dysfunction status: with acute organ dysfunction Sepsis type: sepsis due to unspecified organism Severe sepsis acute organ dysfunction type: unspecified Severe sepsis shock status: without septic shock Qualified Code(s): A41.9 - Sepsis, unspecified organism; R65.20 - Severe sepsis without septic shock (2) Catheter-associated urinary tract infection Indwelling urinary catheter type: unspecified Encounter type: subsequent encounter Qualified Code(s): T83.511D - Infection and inflammatory reaction due to indwelling urethral catheter, subsequent encounter; N39.0 - Urinary tract infection, site not specified (3) Constipation Constipation type: other constipation type Qualified Code(s): K59.09 - Other constipation
[2019-10-01] MEDS ORDERED: ENOXAPARIN INJ 40 MG/0.4 ML SYR SQ SCH (22:00)
[2019-10-02 07:19] VITALS: PULSE 69; TEMP 98.4
[2019-10-02] MEDS: SULFAMETHOXAZOLE/TRIMETHOPRIM DS 800/160MG TAB PO SCH (08:07)
[2019-10-02] MEDS: SENNA 8.6 MG TAB PO SCH (08:07)
[2019-10-02] MEDS: MAGNESIUM HYDROXIDE SUSP 30 ML UDC PO SCH (08:08)
--- NOTE | 2019-10-02 10:41 | Discharge Summary ---
Date of Service date of admission - September 28, 2019 date of discharge - October 02, 2019 Admission HPI Per Admitting Provider Roberto Concepcion is a 19y/o with recent significant PMH for T12-L1 burst fracture with spinal canal impingement s/p T12-L1 fusion; who presented to the ED from [facility] following having fever up to 102.7F, with chills and sweats; was admitted to [facility] two days prior following discharge from [facility], where he had the fusion surgery. Since the injury he has had continued numbness and tingling surrounding his genitals and rectum, with continued difficulties with bowel movements and urination. He was having to have suppositories placed daily in order to have bowel movements, last bowel movement was approximately 4 days ago; has difficulty with urination, he has been receiving bladder scans every 4 hours with straight cathing every 4 hours in between the straight caths he attempts to urinate on his own is able to get only small amounts of urine out at a time with intense straining. He notes that he frequently feels like his bladder is full, and this is unchanged after attempting to urinate but relieved when straight cathed. Over the last day when he has been cathed he has noticed that there is some blood also present, but was told that this was not to be worried about. Patient also reports that prior to discharge from [facility] he was tested for COVID-19 and tested negative. In the meantime he has not had nausea, vomiting, cough, shortness of breath, fatigue, changes in sense of taste, loss of sense of smell. No known or suspected exposure to COVID-19. Social history: Vapes approximately 10 hours daily, recreational alcohol use, denies illicit or recreational drugs Principal Diagnosis catheter-associated/complicated UTI Discharge Exam Constitutional no acute distress and no altered mental status ENMT external ear and nose normal, oropharynx normal Respiratory normal respiratory effort, lungs clear to auscultation Cardiovascular Rate/Rhythm: regular rate and regular rhythm Heart Sounds: normal S1, normal S2 and + murmur (1/6 diastolic ?? LSB ) Vessels: posterior tibial pulses present and dorsalis pedis pulses present; no JVD Extremities: no edema Gastrointestinal (Abdomen) normal bowel sounds, soft, nontender, no hepatosplenomegaly Skin incisions - midline back from recent surgery - clean, intact, no erythema, no drainage, well-healed Neurologic moves all extremities (strength arms 5/5; strength legs near 5/5); no focal motor deficits Psychiatric A+Ox3, euthymic affect Discharge Data Allergies Allergy/AdvReac Type Severity Reaction Status Date / Time No Known Allergies Allergy Verified 09/27/19 18:29 Consultations [facility] [place], OT Ordered Studies 09/27/19 19:17 US abdomen limited - IMPRESSION: 1. Mild gallbladder distention without cholelithiasis or sonographic evidence of acute cholecystitis. 2. 6 mm echogenic focus involving the nondependent gallbladder fundus is suggestive of a polyp. Follow-up abdominal ultrasound in 6 months is recommended to further evaluate. 3. No biliary ductal dilation. 09/28/19 08:30 US renal/blad retro comp - IMPRESSION: 1. Normal renal ultrasound. No obstruction. 2. Limited evaluation of the urinary bladder due to the presence of a Boyd catheter. Hospital Course (1) Sepsis: 2nd to catheter-associated UTI - resolved. blood cx's negative while hospitalized. no fever for 48+ hours prior to discharge. (2) Catheter-associated urinary tract infection: Had been getting straight cathed at [facility] due to urinary retention prior to admission. Thus, his UTI was complicated / catheter-associated. Urine culture grew coag negative staph. Blood cultures remained negative. Patient received IV antibiotic therapy initially, then was transitioned to oral bactrim BID. He will take 10 additional days of bactrim upon discharge. (3) Neurogenic bladder: 2nd to spinal injury. Hopefully with time his bladder function will return. [facility] [place] saw the patient in consult. Intermittent I/O cathing recommended upon return to [facility] with outpatient urology f/u for additional testing. Patient had indwelling boyd during his hospitalization. He was d/c to [facility] with boyd in place at his request. However, recommend d/c of boyd within 2-3 days of discharge, followed by I/O cathing 3-4x's per day thereafter. (4) Elevated liver enzymes: etiology? acute liver injury from alcohol ~2 weeks ago? (patient admitted to heavy alcohol use prior to his fall and back injury) shock liver from low BP at time of this admission? medication-induced? other? either way LFTs normalized while hospitalized. Hep A, B, C all negative. (5) Constipation: 2nd to opiates and probably element of neurogenic bowel. cont bowel regimen. improved with such. (6) Urinary retention: 2nd to neurogenic bladder. s/p boyd insertion -- see above. (7) History of back surgery: T12-L1 burst fracture s/p fixation procedure - [facility]. Following his admission at [facility] he was transferred to [facility] in [place] for intensive inpatient rehab. There he developed fever and was transferred to [facility] and was admitted for UTI. He received PT/OT services while hospitalized. He is returning to [facility] post-d/c for ongoing rehab. Total Time Total Time Spent Total Time Spent (In Minutes): 40 Total Time Includes: Examination of the Patient, Discharge Planning and Medication Reconciliation Discharge Plan Discharge Items Patient Disposition: Transfer Inpatient Rehab Fac Reason For Visit: UTI Discharge Diagnosis: catheter-associated UTI recent T12-L1 burst fracture s/p fixation procedure at [facility] abnormal LFTs - etiology uncertain but resolved Condition on Discharge: Good Activity: As commented below Activity Comment: please follow any prior instructions from [facility] Non-emergency contact: Primary Care Provider Call non-emergency contact if: you have any medication questions, your symptoms worsen and you have a fever Follow-up/Referrals: Toño Bertrand, [Physician] - (1-2 weeks ) PCP,NO [Primary Care Provider] - ([facility] f/u with your family doctor back home ) Diet: Regular Addtl Attending Provider Instructions: Roberto was treated for catheter-associated UTI. Urine culture grew coag negative staph, pansensitive. He completed 4 days of therapy in-house. Recommend 10 more days of oral antibiotics (bactrim). Other recommendations - 1. leave boyd in for another 48 hours, then would d/c and change to intermittent catheterization 3 times a day. 2. see [facility] urology within 1-2 weeks for neurogenic bladder. 3. patient has very soft heart murmur - recommend he follow-up with PCP after discharge for this back home. 4. continue local wound care to incisions on back. return to [facility] if - * fevers over >100.5 degrees * shortness of breath * concern of infection of incisions on back * severe diarrhea * any other concerns Pending Studies at Discharge: No Stand-Alone Forms: My [facility] Skilled Items Patient informed of condition?: Yes DNR: No Discharge Level of Care: Acute rehab Communicable Disease: No Discharge Prognosis: Stable Lines: None Urinary Catheter: Yes Medications and DC Order Prescriptions: New sennosides [Senokot] 8.6 mg Tablet 17.2 mg PO QAM Qty: 60 RF: 0 polyethylene glycol 3350 [Miralax] 17 gram Powder In Packet 17 g PO DAILY Qty: 1 RF: 0 sulfamethoxazole-trimethoprim 800-160 mg Tablet 1 tab PO Q12 10 Days Qty: 20 RF: 0 oxycodone 5 mg Tablet 5 mg PO Q4H PRN (Reason: pain) Qty: 10 RF: 0 Saccharomyces boulardii 250 mg capsule 250 mg PO DAILY 10 Days Qty: 10 RF: 0 calcium carbonate-vitamin D3 600 mg(1,500mg) -800 unit tablet 1 tab PO BID Qty: 60 RF: 0 No Action No Known Home Medications RF: 0 Discharge Orders: Discharge Order (Routine); Ordered 10/02/19 Ordered By: Sumeet Love Admission Data Admit Date/Time: 09/28/19 19:39 Attending Provider: Sumeet Love Admit Provider: Mitul Zarate Primary Care Provider: PCP,NO Other Providers: Rach Posey ; Toño Bertrand ; [facility] Other Interventions: Discharge Summary Assessment (RN) Last Done: 10/02/19 13:36 DC Date/Time DO NOT enter until pt leaves facility: 10/02/19 14:15 Coding Level of Care Code D/C Day Management >30 mins Diagnoses Sepsis A41.9; R65.20 Sepsis acute organ dysfunction status: with acute organ dysfunction Sepsis type: sepsis due to unspecified organism Severe sepsis acute organ dysfunction type: unspecified Severe sepsis shock status: without septic shock Catheter-associated urinary tract infection T83.511D; N39.0 Encounter type: subsequent encounter Indwelling urinary catheter type: unspecified Neurogenic bladder N31.9 Elevated liver enzymes R74.8 Constipation K59.09 Constipation type: other constipation type Urinary retention R33.9 History of back surgery Z98.890
[2019-10-02 11:01] VITALS: BP 123/75
== END 2019-10-02 14:15 | DRG 700 ==
LOC: 3E 17:14 → ED 17:14 → SUATTDRO 22:34 → 3E 22:49 → SUATTDRO 09-28 19:39 → 2N 09-29 12:22